=== PATIENT | female | born 1945 | race Caucasian/White ===

== ENCOUNTER 2020-02-22 16:26 | Emergency (ER) | payer MEDICARE ==
[~2020-02-22] VITALS: Ht 160 cm; Wt 45.5 kg
[2020-02-22 16:38] VITALS: BP 156/81
[2020-02-22] MEDS ORDERED: ONDANSETRON PF 4 MG/2 ML VIAL. IV ONE (16:45)
--- NOTE | 2020-02-22 17:14 | PHYS DOC ---
Past History Past Medical History: COPD Past Surgical History: Hysterectomy Alcohol Use: None General Adult EDM: Chief Complaint: LOWER BACK PAIN OR INJURY HPI: HPI: Patient is a 75-year-old female with severe back and left hip pain. She states she fell during the night about a week ago has been up and around since that time but today the pain became excruciating to the point that she could not get up and perform any of her activities of daily living. She did not hit her head she did not lose consciousness. She states she fell just because she was tired and weak. [] Review of Systems: Review of Systems: Constitutional: Denies fever or chills Eyes: Denies change in visual acuity HENT: Denies nasal congestion or sore throat Respiratory: Denies cough or shortness of breath Cardiovascular: Denies chest pain or edema GI: Denies abdominal pain, nausea, vomiting, bloody stools or diarrhea : Denies dysuria Musculoskeletal: Reports low back and left hip pain Integument: Denies rash Neurologic: Denies headache, focal weakness or sensory changes Endocrine: Denies polyuria or polydipsia Lymphatic: Denies swollen glands Psychiatric: Denies depression or anxiety Heart Score: Risk Factors: Risk Factors: DM, Current or recent (<one month) smoker, HTN, HLP, family history of CAD, obesity. Risk Scores: Score 0 - 3: 2.5% MACE over next 6 weeks - Discharge Home Score 4 - 6: 20.3% MACE over next 6 weeks - Admit for Clinical Observation Score 7 - 10: 72.7% MACE over next 6 weeks - Early Invasive Strategies Current Medications: Current Meds: Current Medications Medications (Trade) Dose Ordered Sig/Irina Start Time Stop Time Status Last Admin Dose Admin Fentanyl Citrate (Fentanyl 2ml Vial) 50 mcg 1X ONCE 02/22/20 16:45 02/22/20 16:46 DC Ondansetron HCl (Zofran) 4 mg 1X ONCE 02/22/20 16:45 02/22/20 16:46 DC Allergies: Allergies: Allergies Coded Allergies Type Severity Reaction Last Updated Verified Cephalosporins Allergy Unknown 02/22/20 Yes Physical Exam: PE: Constitutional: Well developed, well nourished, n mild to moderate distress, non-toxic appearance. [] HENT: Normocephalic, atraumatic, bilateral external ears normal, oropharynx moist, no oral exudates, nose normal. [] Eyes: PERRLA, EOMI, conjunctiva normal, no discharge. [] Neck: Normal range of motion, no tenderness, supple, no stridor. [] Cardiovascular:Heart rate regular rhythm, no murmur [] Lungs & Thorax: Bilateral breath sounds clear to auscultation [] Abdomen: Bowel sounds normal, soft, no tenderness, no masses, no pulsatile masses. [] Skin: Warm, dry, no erythema, no rash. [] Back: There is some lumbar paraspinal muscle tenderness no midline tenderness [] Extremities: There is some bruising over the left hip decreased range of motion secondary to pain no shortening or external rotation [] Neurologic: Alert and oriented X 3, normal motor function, normal sensory function, no focal deficits noted. [] Psychologic: Affect normal, judgement normal, mood normal. [] Current Patient Data: Vital Signs: Vital Signs Date Time Temp Pulse Resp B/P (MAP) Pulse Ox O2 Delivery O2 Flow Rate FiO2 02/22/20 16:38 97.8 90 18 156/81 (106) 97 EKG: EKG: [] Radiology/Procedures: Radiology/Procedures: [] Impressions: REASON: back pain PROCEDURE: LUMBAR SPINE 2-3V Examination: LUMBAR SPINE 2-3V History: Reason: back pain / Spl. Instructions: / History: Comparison/Correlation: None Findings: Total of 3 images of the lumbar spine were obtained. L2 superior endplate compression deformity is noted with 25-50 percent loss of vertebral body height. Exaggerated lordosis of lumbar spine is present. Osteopenia noted. Anterolisthesis of L4 in relation to L5 is by approximately grade 1 extent. Grade 2 anterolisthesis of L5 in relation to S1 is present. Bilateral L5 pars interarticularis fractures appear to be present. Spina bifida occulta at L5 noted. Lucency involving the left superior ischiopubic junction noted. Impression: Grade 2 anterolisthesis of L5 in relation S1 with severe disc space narrowing and partial intra-articular structures appear to be present. Malalignment at L4-5 as well as 20 degree. Mild compression deformity of the L2 superior endplate is of indeterminate age. Left superior-inferior pubic junction nondisplaced fracture which appears to be acute. Course & Med Decision Making: Course & Med Decision Making Pertinent Labs and Imaging studies reviewed. (See chart for details) [] Dragon Disclaimer: Dragon Disclaimer: This electronic medical record was generated, in whole or in part, using a voice recognition dictation system. Departure Departure: Impression: Primary Impression: Pelvic fracture Qualified Codes: S32.502A - Unspecified fracture of left pubis, initial encounter for closed fracture Additional Impression: Compression fracture Disposition: 05 TRANSFER OTHER Condition: STABLE Referrals: PCP,NO (PCP) Justification of Admission: Justification of Admission: Justification of Admission Dx: Yes Fracture: Fracture OSEI ALLEN DO Feb 22, 2020 17:14
--- NOTE | 2020-02-22 17:24 | RAD ---
Examination: HIP LEFT 2V WITH PELVIS History: Reason: back pain / Spl. Instructions: / History: Comparison/Correlation: None Findings: Frontal view of the pelvis was obtained. Osteopenia is noted. Left anterior pubic ring fracture is present. Fracture involving the left superior ischio pubic junction is noted. Subtle sclerosis of the femoral heads bilaterally noted. Old right pubic ring fractures are present. Impression: Left pubic ring fractures which appear to be acute. Patchy sclerosis of the femoral heads which may represent avascular necrosis. Femoral head contours are unremarkable. Electronically signed by: Torsten Colorado MD (02/22/2020 5:21 PM) [id number]
--- NOTE | 2020-02-22 17:27 | RAD ---
Examination: LUMBAR SPINE 2-3V History: Reason: back pain / Spl. Instructions: / History: Comparison/Correlation: None Findings: Total of 3 images of the lumbar spine were obtained. L2 superior endplate compression deformity is noted with 25-50 percent loss of vertebral body height. Exaggerated lordosis of lumbar spine is present. Osteopenia noted. Anterolisthesis of L4 in relation to L5 is by approximately grade 1 extent. Grade 2 anterolisthesis of L5 in relation to S1 is present. Bilateral L5 pars interarticularis fractures appear to be present. Spina bifida occulta at L5 noted. Lucency involving the left superior ischiopubic junction noted. Impression: Grade 2 anterolisthesis of L5 in relation S1 with severe disc space narrowing and partial intra-articular structures appear to be present. Malalignment at L4-5 as well as 20 degree. Mild compression deformity of the L2 superior endplate is of indeterminate age. Left superior-inferior pubic junction nondisplaced fracture which appears to be acute. Electronically signed by: Torsten Colorado MD (02/22/2020 5:24 PM) [id number]
== END 2020-02-22 18:50 | disposition short-term general hospital (02) ==
LOC: ER 16:26
DX: S32.502A Unspecified fracture of left pubis, initial encounter for closed fracture (principal); Z03.818 Encounter for observation for suspected exposure to other biological agents ruled out; J44.9 Chronic obstructive pulmonary disease, unspecified; Z90.710 Acquired absence of both cervix and uterus; Z88.1 Allergy status to other antibiotic agents; W18.39XA Other fall on same level, initial encounter; Y93.89 Activity, other specified; Y92.89 Other specified places as the place of occurrence of the external cause; Y99.8 Other external cause status
CPT/HCPCS: 72100; 73502; 96374; 96375; 99285; C9803; J2405; J3010; U0003; 87426